=== PATIENT | female | born 1995 | race Two or more races ===

== ENCOUNTER 2023-03-27 08:15 | Emergency (ER) | payer OTHER ==
[~2023-03-27] VITALS: Ht 165.1 cm; Wt 82.6 kg
[2023-03-27] MEDS ORDERED: PRENA1 TRUE CO1 EACH PO (08:19)
== END 2023-03-27 09:39 | disposition home or self-care (01) ==
LOC: ER 08:16
DX: J06.9 Acute upper respiratory infection, unspecified (principal); Z20.822 Contact with and (suspected) exposure to COVID-19